=== PATIENT | female | born 1995 ===

== ENCOUNTER 2021-10-17 16:46 | Outpatient (CLI) | payer OTHER ==
[2021-10-17 17:17] VITALS: BP 104/61
[2021-10-17] MEDS ORDERED: LACTATED RINGERS 500 ML IV ONE (18:00)
--- NOTE | 2021-10-17 18:33 | Ultrasound Report ---
ULTRASOUND OBSTETRIC LIMITED ULTRASOUND BIOPHYSICAL PROFILE INDICATION / CLINICAL INFORMATION: BPP and Dopplers baby measuring small in office. Clinical Gestational Age (GA) in weeks, days: 30, 1 TECHNIQUE: Transabdominal. COMPARISON: None available. FINDINGS: BREATHING MOVEMENT = 2 GROSS BODY MOVEMENT = 2 TONE = 2 QUALITATIVE AMNIOTIC FLUID VOLUME = 2 TOTAL BIOPHYSICAL SCORE = 8/8 HEART RATE (beats per minute): 138 PRESENTATION: Breech. ADDITIONAL FINDINGS: None. IMPRESSION: 1. Biophysical Score = 8/8 Signer Name: Williams Pope MD Signed: 10/17/2021 6:29 PM Workstation Name: [id number]
--- NOTE | 2021-10-17 18:39 | Ultrasound Report ---
UMBILICAL CORD DOPPLER: HISTORY: labor. - S/D Ratio Average: 2.95 - Waveform: Normal. Persistent. - Resistive Index (RI) Average: 0.66 - Waveform: Normal. Persistent. Signer Name: Williams oPpe MD Signed: 10/17/2021 6:35 PM Workstation Name: [id number]
== END 2021-10-17 18:25 | disposition home or self-care (01) ==
LOC: TRG 16:46 → APU 16:48 → TRG 18:25
PROVIDERS: ATTEND Obstetrics & Gynecology
DX: Z34.93 Encounter for supervision of normal pregnancy, unspecified, third trimester (principal); Z3A.30 30 weeks gestation of pregnancy
CPT/HCPCS: 59025; 76819; 76820